=== PATIENT | male | born 2000 | race Caucasian/White ===

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

== ENCOUNTER 2021-12-01 10:05 | Emergency (ER) | payer OTHER ==
[2021-12-01] MEDS ORDERED: AMOX TR/POT CLAV 875MG/125MG TABLETS (FP) PO ONE (10:23)
[2021-12-01] MEDS ORDERED: AMOX TR/POT CLAV 875MG/125MG TABLETS (FP) ONE (10:26)
[2021-12-01 10:30] VITALS: BP 120/80; PULSE 74; RESP 15; TEMP 98.7; BMI 20.5
== END 2021-12-01 10:33 | disposition home or self-care (01) ==
LOC: FER 10:05
DX: K11.20 Sialoadenitis, unspecified (principal)
CPT/HCPCS: 99283-25